=== PATIENT | male | born 1975 | race African-American/Black ===

== ENCOUNTER 2017-01-01 12:41 | Emergency (ER) | payer BC ==
[~2017-01-01] VITALS: Ht 175.3 cm; Wt 73.6 kg
[2017-01-01 12:48] VITALS: TEMP 98.5
[2017-01-01] MEDS ORDERED: NORCO 325 MG-51 TAB PO (14:44)
[2017-01-01 15:24] VITALS: BP 112/79; PULSE 75
== END 2017-01-01 15:27 | disposition home or self-care (01) ==
LOC: COL.ER 12:41
DX: S42.022A Displaced fracture of shaft of left clavicle, initial encounter for closed fracture (principal); S00.93XA Contusion of unspecified part of head, initial encounter; F17.210 Nicotine dependence, cigarettes, uncomplicated; W10.9XXA Fall (on) (from) unspecified stairs and steps, initial encounter; Y92.009 Unspecified place in unspecified non-institutional (private) residence as the place of occurrence of the external cause
CPT/HCPCS: J2270; J2405

== ENCOUNTER → 2017-03-30 | Outpatient (CLI) | payer BC ==
[~2017-03-30] MED LIST: NORCO 325 MG-51 TAB PO
[2017-03-30 16:12] LABS: BASO % 1.2 % (0.0-2.0); EOS # 0.1 (0.0-0.7); EOS % 2.2 % (0-4.0); GRAN # 1.7 (1.4-6.5); GRAN % 52.5 % (42.2-75.2); HEMATOCRIT 42.3 % (42.0-52.0); HEMOGLOBIN 14.6 g/dl (13.5-18.0); LYMPH % 30.4 % (20.0-51.0); MEAN CELL VOLUME 102 fl (80.0-100.0); MEAN CORPUSCULAR HEMOGLOBIN 35 pg (27.0-31.0); MEAN CORPUSCULAR HGB CONC 35 g/dl (33.0-37.0); MEAN PLATELET VOLUME 11.1 fl (7.4-10.4); MONO # 0.4 (0.1-0.6); MONO % 13.7 % (1.7-9.3); PLATELET COUNT 212 K/mm3 (130-400); RED BLOOD COUNT 4.15 M/mm3 (4.20-5.60); WHITE BLOOD COUNT 3.2 K/mm3 (4.8-10.8)
[2017-03-30 16:20] LABS: ADJUSTED CALCIUM 9.3 mg/dL (8.4-10.2); ALBUMIN 4.6 gm/dL (3.5-5.0); BILIRUBIN,TOTAL 1.1 mg/dL (0.0-1.0); CALCIUM 9.8 mg/dL (8.4-10.2); CREATININE, serum 0.71 mg/dL (0.66-1.25); POTASSIUM 4.4 mmol/L (3.4-5.0)
[2017-03-30 16:39] LABS: CHOLESTEROL RISK RATIO 1.5
[2017-03-30 16:47] LABS: TSH w REFLEX 0.208 uIU/mL (0.465-4.680)
== END ==
LOC: COL.LAB 09:59
PROVIDERS: Family Medicine
DX: I10 Essential (primary) hypertension (principal); R53.83 Other fatigue

== ENCOUNTER → 2017-07-20 | Outpatient (CLI) | payer BC ==
[2017-07-20 08:17] LABS: BASO # 0.1 (0.0-0.2); BASO % 1.9 % (0.0-2.0); EOS # 0.1 (0.0-0.7); EOS % 2.7 % (0-4.0); GRAN # 1.3 (1.4-6.5); GRAN % 49.2 % (42.2-75.2); HEMATOCRIT 41.4 % (42.0-52.0); HEMOGLOBIN 14.5 g/dl (13.5-18.0); LYMPH # 0.8 (1.2-3.4); LYMPH % 32.2 % (20.0-51.0); MEAN CELL VOLUME 99 fl (80.0-100.0); MEAN CORPUSCULAR HEMOGLOBIN 35 pg (27.0-31.0); MEAN CORPUSCULAR HGB CONC 35 g/dl (33.0-37.0); MEAN PLATELET VOLUME 10.1 fl (7.4-10.4); MONO # 0.4 (0.1-0.6); MONO % 13.6 % (1.7-9.3); PLATELET COUNT 141 K/mm3 (130-400); REDCELL DISTRIBUTION WIDTH-CV 14.3 % (11.5-14.5)
[2017-07-20 08:50] LABS: ALBUMIN 4.9 gm/dL (3.5-5.0); CREATININE, serum 0.69 mg/dL (0.66-1.25); POTASSIUM 4.3 mmol/L (3.4-5.0); TOTAL PROTEIN 8.2 gm/dL (6.4-8.2)
[2017-07-20 08:56] LABS: HIV 1/2 Antibodies Non-Reactive; HIV-1p24 Antigen Non-Reactive
== END ==
LOC: COL.RAD 07:13
PROVIDERS: Family Medicine
DX: F10.10 Alcohol abuse, uncomplicated (principal); R74.0 Nonspecific elevation of levels of transaminase and lactic acid dehydrogenase [LDH]

== ENCOUNTER 2021-04-05 23:16 | Emergency (ER) | payer OTHER ==
[2021-04-05 23:29] VITALS: TEMP 98.4
[2021-04-06 01:38] VITALS: BP 153/92; PULSE 95
== END 2021-04-06 01:38 | disposition home or self-care (01) ==
LOC: COL.ER 23:16
DX: S09.90XA Unspecified injury of head, initial encounter (principal); F17.210 Nicotine dependence, cigarettes, uncomplicated; Y04.2XXA Assault by strike against or bumped into by another person, initial encounter

== ENCOUNTER 2021-07-18 16:07 | Emergency (ER) | payer OTHER ==
[~2021-07-18] VITALS: Ht 177.8 cm; Wt 75.0 kg
[2021-07-18 16:17] VITALS: TEMP 98.5
[2021-07-18] MEDS ORDERED: NORCO 325 MG-51 TAB PO (17:33)
[2021-07-18 17:40] VITALS: BP 141/89; PULSE 83
== END 2021-07-18 17:46 | disposition home or self-care (01) ==
LOC: COL.ER 16:07
DX: S22.31XA Fracture of one rib, right side, initial encounter for closed fracture (principal); M54.9 Dorsalgia, unspecified; I10 Essential (primary) hypertension; F17.200 Nicotine dependence, unspecified, uncomplicated; X58.XXXA Exposure to other specified factors, initial encounter

== ENCOUNTER 2022-09-24 02:31 | Emergency (ER) | payer BC ==
[~2022-09-24] VITALS: Ht 175.3 cm; Wt 79.1 kg
[2022-09-24 02:46] VITALS: TEMP 98.1
[2022-09-24 04:20] VITALS: BP 118/81; PULSE 80
== END 2022-09-24 04:30 | disposition home or self-care (01) ==
LOC: COL.ER 02:31
DX: S09.90XA Unspecified injury of head, initial encounter (principal); S01.81XA Laceration without foreign body of other part of head, initial encounter; W19.XXXA Unspecified fall, initial encounter